=== PATIENT | female | born 1970 | race Caucasian/White ===

== ENCOUNTER 2019-01-13 08:04 | Emergency (ER) | payer OTHER ==
[~2019-01-13] VITALS: Ht 152.4 cm; Wt 49.9 kg
[2019-01-13 08:05] VITALS: BP 154/84
--- NOTE | 2019-01-13 08:05 | NUR ---
[facility] FROM [facility]PLACE ([facility]). PER EMS, PT WAS BITTEN BY HER PT TO RIGHT FOREARM WITH APPROX 1-2 INCH IN LENGTH, BLEEDING CONTROLLED, PAIN 5/10. PER PT, SHE ASSISTED PT TO THE BATHROOM AND SHE INQUIRED IF THE PT WAS DONE AND THAT'S WHEN THE PT BIT HER TO THE RIGHT FOREARM. +CMS TO RIGHT FOREARM, NO SWELLING, NO DEFORMITY NOTED. TENDER TO TOUCH. ER TO EVALUATE PT.
--- NOTE | 2019-01-13 08:07 | NUR ---
DR LEMA AT BEDSIDE FOR PT EVALUATION
--- NOTE | 2019-01-13 08:20 | NUR ---
LAB AT BEDSIDE
[2019-01-13] MEDS ORDERED: NEOMYCIN/POLYMYXIN/BACITRACIN 0.9 GM/1 PKT TP ONE (08:25)
--- NOTE | 2019-01-13 08:42 | NUR ---
WOUND CARE PROVIDED TO RIGHT FOREARM. CLEANSED WITH NS, PATTED DRY, APPLIED NEOSPORIN ORDERED, APPLIED NON ADHERENT PAD, WRAPPED WITH GAUZE AND SECURED WITH TAPE. PT TOLERATED WOUND CARE WELL.
--- NOTE | 2019-01-13 10:00 | NUR ---
PT AAO X4. FULL CLEAR SPEECH. CONVERSATING APPROPRIATELY.
[2019-01-13] MEDS ORDERED: cefTRIAXone 1,000 MG in LIDOCAINE 1% ***ER ONLY *** 2.1 ML IM ONE (10:05)
[2019-01-13] MEDS ORDERED: IBUPROFEN 600 MG TAB PO ONE (10:05)
[2019-01-13] MEDS ORDERED: cefTRIAXone 1,000 MG VIAL ONE (10:35)
[2019-01-13] MEDS ORDERED: LIDOCAINE MPF 1% - 5 mL VIAL 5 ML ONE (10:44)
--- NOTE | 2019-01-13 11:00 | NUR ---
DAUGHTER AT BEDSIDE. PT AAO X4. FULL CLEAR SPEECH. PT CONVERSATING APPROPRIATELY.
[2019-01-13 11:25] VITALS: BP 133/78
[2019-01-14 06:12] LABS: HEPATITIS B SURFACE ANTIGEN Negative (Negative)
== END 2019-01-13 11:25 | disposition home or self-care (01) ==
LOC: EDBD 08:04 → MED 08:04
DX: S61.551A Open bite of right wrist, initial encounter (principal); S51.851A Open bite of right forearm, initial encounter; Z77.21 Contact with and (suspected) exposure to potentially hazardous body fluids; W50.3XXA Accidental bite by another person, initial encounter; Y93.F1 Activity, caregiving, bathing; Y92.89 Other specified places as the place of occurrence of the external cause; Y99.0 Civilian activity done for income or pay
CPT/HCPCS: 29125; 36415; 81025; 82948; 86592; 86702; 86803; 87340; 90471; 90715; 96372; 99283; J0696; J2001